=== PATIENT | male | born 1975 | race Caucasian/White ===

== ENCOUNTER → 2018-04-11 | Outpatient (CLI) | payer OTHER ==
[~2018-04-11] MED LIST: 1-ME1LIQ PO; FLUO20TA20 PO; GABA100C4 PO; LISI-363 PO
[2018-04-11 09:02] LABS: BASOPHIL # 0.1 TH/MM3 (0-0.2); BASOPHIL % 0.8 % (0.0-2.0); EOSINOPHIL # 0.3 TH/MM3 (0-0.4); EOSINOPHIL % 3.9 % (0.0-4.0); HEMATOCRIT 43.6 % (39.0-51.0); HEMOGLOBIN 14.6 GM/DL (13.0-17.0); MEAN CELL VOLUME 82.6 FL (80.0-100.0); MEAN CORPUSCULAR HEMOGLOBIN 27.7 PG (27.0-34.0); MEAN CORPUSCULAR HGB CONC 33.5 % (32.0-36.0); MEAN PLATELET VOLUME 7.7 FL (7.0-11.0); MONO % 5.2 % (0.0-8.0); MONOCYTE # 0.4 TH/MM3 (0-0.9); NEUT % 65.1 % (16.0-70.0); PLATELET COUNT 349 TH/MM3 (150-450); RED BLOOD COUNT 5.28 MIL/MM3 (4.50-5.90); RED CELL DISTRIBUTION WIDTH 11.7 % (11.6-17.2); WHITE BLOOD COUNT 7.8 TH/MM3 (4.0-11.0)
[2018-04-11 10:47] LABS: ALBUMIN 3.9 GM/DL (3.4-5.0); AST (GOT) 22 U/L (15-37); BICARBONATE 24.2 MEQ/L (21.0-32.0); BLOOD UREA NITROGEN 15 MG/DL (7-18); CHLORIDE 103 MEQ/L (98-107); CHOLESTEROL 282 MG/DL (120-200); GLOMERULAR FILTRATION RATE 93 ML/MIN (>89); GLUCOSE,FASTING 90 MG/DL (74-99); MAGNESIUM 2.3 MG/DL (1.5-2.5); SODIUM (NA) 139 MEQ/L (136-145); TRIGLYCERIDES 175 MG/DL (42-150)
[2018-04-11 11:14] LABS: % SATURATION IRON PROFILE 25.3 % (20-50); ALKALINE PHOSPHATASE 68 U/L (45-117); ALT (GPT) 48 U/L (12-78); CHOLESTEROL/ HDL RATIO 5.26 RATIO; FERRITIN 300 NG/ML (26-388); FOLATE 17.2 NG/ML (3.1-17.5); HDL CHOLESTEROL 53.6 MG/DL (40.0-60.0); IRON (FE) 98 MCG/DL (65-175); LDL CHOLESTEROL 193 MG/DL (0-99); PHOSPHORUS 4.6 MG/DL (2.5-4.9); TOTAL BILIRUBIN ADULT 0.6 MG/DL (0.2-1.0); TOTAL IRON BINDING CAPACITY 388 MCG/DL (250-450); TOTAL PROTEIN 7.5 GM/DL (6.4-8.2)
== END ==
LOC: OLAB 07:51
PROVIDERS: ATTEND Nurse Practitioner
DX: E66.9 Obesity, unspecified (principal); Z98.84 Bariatric surgery status
CPT/HCPCS: 36415; 80053; 80061; 82306; 82607; 82728; 82746; 83540; 83550; 83735; 83970; 84100; 84443; 84590; 85025